=== PATIENT | male | born 1995 | race Caucasian/White ===

== ENCOUNTER 2016-08-31 14:56 | Emergency (ER) | payer MEDICAID, OTHER ==
[~2016-08-31] VITALS: Ht 172.7 cm; Wt 102.1 kg
[2016-08-31 15:21] VITALS: BP_SYST 152
--- NOTE | 2016-08-31 15:21 | NUR ---
PLACED IN ROOM 3 REPORT TO GREG JENKINS
--- NOTE | 2016-08-31 15:50 | NUR ---
ER MD Cheng at bedside for evaluation
--- NOTE | 2016-08-31 16:01 | NUR ---
Note undone in EDM - 08/31/16 at 1617 by KONRAD Patient given written and verbal discharge instructions and verbalizes understanding. ER MD Cheng discussed with patient the results and treatment provided. Patient in stable condition. ID arm band removed. Patient educated on pain management and to follow up with PMD. Pain Scale 0/10. Opportunity for questions provided and answered.
--- NOTE | 2016-08-31 16:01 | NUR ---
Pt states "I feel sick and need my bipolar pills". Take lamicatal 25mg BID, Latuda 50mg HS, Hydroxizine 25mg BID, Zoloft daily. Has been out of pills x1 week. C/O sore thoat when he swallows, no when he talks. Denies fever. C/O diarrhea past few days. LUQ pain accompanied by diarrhea.
--- NOTE | 2016-08-31 16:03 | NUR ---
[facility] Patient states "i have an appointment in September and they cant give me refill until my appointment" Per ambulatory technologist Scar Holman at [facility] patient has an appointment tomorrow morning 09/01/16 at 8 am to see the therapist and an appointment September 29 at 8:[address] Elizabeth Hays psychiatrist. Per ambulatory technologist Scar Holman patient had 5 crisis hospitalizations for SI with intent of "taking all his psych meds" and one attempt where he stepped in front of a train but got pulled back by the grandmother. In addition the prescriptions that patient is asking for are not the right doses or meds prescribed by the facility. Patient is asking for latuda 50mg dq, lamictal 25mg bid, zolovt 80mg qd, hydraxyzine 25 mg q12h prn. Per ambulatory technologist Scar Holman patient can go to [address] [phone] which is open 24 hrs daily to receive emergency psych meds and being evaluated by a therapist. ER MD Cheng aware.
[2016-08-31 16:11] VITALS: BP_SYST 124
--- NOTE | 2016-08-31 16:11 | NUR ---
Patient given written and verbal discharge instructions and verbalizes understanding. ER MD Cheng discussed with patient the results and treatment provided. Patient in stable condition. ID arm band removed. Patient educated on pain management and to follow up with PMD. Pain Scale 0/10. Opportunity for questions provided and answered.
== END 2016-08-31 16:11 | disposition home or self-care (01) ==
LOC: SED 14:56
DX: Z76.0 Encounter for issue of repeat prescription (principal); F90.9 Attention-deficit hyperactivity disorder, unspecified type; F20.9 Schizophrenia, unspecified; F31.9 Bipolar disorder, unspecified; K21.9 Gastro-esophageal reflux disease without esophagitis; F43.10 Post-traumatic stress disorder, unspecified; Z91.011 Allergy to milk products
CPT/HCPCS: 99283

== ENCOUNTER 2016-09-03 12:43 | Emergency (ER) | payer OTHER ==
[~2016-09-03] VITALS: Ht 170.2 cm; Wt 132.4 kg
[2016-09-03 13:16] VITALS: BP_SYST 137
--- NOTE | 2016-09-03 15:15 | NUR ---
Called for patient 3 times, unable to locate pt. Pt presumed to have LWBS.
== END 2016-09-03 15:15 | disposition left against medical advice (07) ==
LOC: SED 12:43
DX: R07.0 Pain in throat (principal); R11.10 Vomiting, unspecified; Z53.21 Procedure and treatment not carried out due to patient leaving prior to being seen by health care provider

== ENCOUNTER 2018-02-17 11:46 | Emergency (ER) | payer MEDICAID ==
[~2018-02-17] VITALS: Ht 172.7 cm; Wt 104.3 kg
[2018-02-17 11:52] VITALS: BP_SYST 133
--- NOTE | 2018-02-17 11:57 | NUR ---
Patient to ER bed 4 to gown for evaluation. Side rails up. Report given to Adair JENKINS.
--- NOTE | 2018-02-17 12:05 | NUR ---
Pt presents to ER c/o cough, fever, diarrhea. Pt in no acute distress, speaking full sentences, ambulatory, AOX4.
--- NOTE | 2018-02-17 12:30 | NUR ---
ER at bedside examining patient.
--- NOTE | 2018-02-17 14:04 | NUR ---
Patient given written and verbal discharge instructions and verbalizes understanding. ER MD discussed with patient the results and treatment provided. Patient in stable condition. ID arm band removed. IV catheter removed intact and dressing applied, no active bleeding. Rx of Promethazine given. Patient educated on pain management and to follow up with PMD. Pain Scale 2/10 tolerable patient Opportunity for questions provided and answered. Medication side effect fact sheet provided.
[2018-02-17 14:06] VITALS: BP_SYST 128
== END 2018-02-17 14:04 | disposition home or self-care (01) ==
LOC: SED 11:46
DX: J06.9 Acute upper respiratory infection, unspecified (principal); R03.0 Elevated blood-pressure reading, without diagnosis of hypertension; K21.9 Gastro-esophageal reflux disease without esophagitis; J45.909 Unspecified asthma, uncomplicated; F43.10 Post-traumatic stress disorder, unspecified; F31.9 Bipolar disorder, unspecified; F20.9 Schizophrenia, unspecified; F90.9 Attention-deficit hyperactivity disorder, unspecified type; Z86.19 Personal history of other infectious and parasitic diseases; Z91.011 Allergy to milk products
CPT/HCPCS: 36415; 71046-TC; 86403; 87081; 99285

== ENCOUNTER 2018-04-04 08:53 | Inpatient (IN) | payer MEDICAID ==
[~2018-04-04] VITALS: Ht 172.7 cm; Wt 113.4 kg
[2018-04-04 08:53] VITALS: BP_SYST 146
--- NOTE | 2018-04-04 08:53 | NUR ---
BROUGHT IN BY [facility], REPORT GIVEN TO PANCHITO
--- NOTE | 2018-04-04 09:00 | NUR ---
Pt brought in by BLS ambulance C/O general body aches, nausea, vomiting and headache. Pt states he took heroin 3 days ago and took meth 30 minutes ago. Pt has not slept in 6 days and would like to be evaluated. Pt has hx of substance abuse, stroke, psych hx, and asthma. Vital signs stable will continue to monitor.
--- NOTE | 2018-04-04 09:05 | NUR ---
ER Dr. Cheng at bedside examining patient.
[2018-04-04] MEDS ORDERED: NACL 0.9% 1,000 ML IV ONE (09:45)
[2018-04-04] MEDS ORDERED: LORazepam 2 MG/ML VIAL (FOR ER USE) IVP ONE (09:45)
--- NOTE | 2018-04-04 10:30 | NUR ---
Medications given to pt, tolerated well
[2018-04-04 10:33] LABS: BASOPHILS # (AUTO) 0.1 K/uL (0.0-0.2); BASOPHILS % (AUTO) 0.7 % (0.0-2.0); EOSINOPHILS # (AUTO) 0.1 K/uL (0.0-0.4); EOSINOPHILS % (AUTO) 0.7 % (0.0-4.0); HEMATOCRIT 47.5 % (36-54); HEMOGLOBIN 15.8 g/dL (14.0-18.0); LYMPHOCYTES # (AUTO) 1.9 K/uL (1.0-5.5); LYMPHOCYTES % (AUTO) 24.4 % (20.5-51.5); MEAN CORPUSCULAR HEMOGLOBIN 29 pg (27-31); MEAN CORPUSCULAR HGB CONC 33 % (32-36); MEAN CORPUSCULAR VOLUME 86 fL (79.0-98.0); MONOCYTES # (AUTO) 0.8 K/uL (0.0-1.0); MONOCYTES % (AUTO) 9.6 % (1.7-9.3); NEUTROPHILS # (AUTO) 4.9 K/uL (1.8-7.7); NEUTROPHILS % (AUTO) 64.6 % (40.0-70.0); PLATELET COUNT (AUTO) 239 K/uL (130-430); RED BLOOD CELL COUNT(AUTO) 5.49 MIL/uL (4.2-6.2); RED CELL DISTRIBUTION WIDTH 12.4 % (9.0-15.0); WHITE BLOOD COUNT (AUTO) 7.8 K/uL (4.8-10.8)
[2018-04-04 10:46] LABS: PROTHROMBIN TIME 10.3 SECS (9.5-12.5)
[2018-04-04 10:53] LABS: ANION GAP 13 (5-15); CALCIUM 9.4 mg/dL (8.4-11.0); CHLORIDE 103 mmol/L (98-107); CREATININE 0.85 mg/dL (0.55-1.30); GLUCOSE 75 mg/dL (70-99); POTASSIUM 3.7 mmol/L (3.5-5.1); SODIUM SERUM 139 mmol/L (136-145); UREA NITROGEN, BLOOD 14 mg/dL (8-21)
[2018-04-04 10:55] LABS: GFR AFRICAN AMERICAN 145 mL/min (>90)
[2018-04-04 11:03] LABS: ALANINE AMINOTRANSFERASE 94 U/L (12-78); ALBUMIN 4.1 g/dL (3.4-4.8); ASPARTATE AMINOTRANSFERASE 40 U/L (10-37); FREE T4 (FREE THYROXINE) 0.6 ng/dL (0.6-1.6)
--- NOTE | 2018-04-04 11:09 | NUR ---
DR IQABL AT BEDSIDE FOR RE-EVALUATION
[2018-04-04 11:11] LABS: ALCOHOL, BLOOD < 3 mg/dL (<10)
[2018-04-04] MEDS ORDERED: LEVE250T2 PO (11:21)
[2018-04-04] MEDS ORDERED: LURA40TA PO (11:21)
[2018-04-04] MEDS ORDERED: LORA2TAB95 PO (11:21)
--- NOTE | 2018-04-04 11:22 | NUR ---
Medication reconciliation completed with information provided by PT. Any prior medication reconciliation on file was reviewed and corrected.
--- NOTE | 2018-04-04 11:22 | NUR ---
PT REPORTS THAT HE IS DNR
--- NOTE | 2018-04-04 12:14 | NUR ---
Pt is anxious and sitting in bed. Vitals are stable will continue to monitor pt condition.
--- NOTE | 2018-04-04 12:30 | NUR ---
Patient will be admitted to care of Dr. Ragsdale. Admitted to Telemetry unit. Will go to room 102A. Belongings list completed. Summary report printed. Report will be given at bedside.
[2018-04-04 12:45] VITALS: BP_SYST 130
--- NOTE | 2018-04-04 12:45 | NUR ---
Admission Note Received patient from ER with diagnosis of Abnormal Liver Enzymes. Initial Plan of Care discussed-patient verbalized understanding. Family at bedside. Oriented to room, call light, pain management and safety.
[2018-04-04 13:12] VITALS: BP_SYST 130
--- NOTE | 2018-04-04 14:24 | NUR ---
REFUSING CATHETER Pt refusing to have straight cath, pt stated he "hates them'. Pt educated on why the doctor ordered the catheter-pt verbalized his understanding and still refused. Pt requested more apple juice to try to go on his own. Note that pt had bladder scan earlier that showed 200 ml-Dr. Ragsdale aware. Pt given urinal. Call light within reach.
--- NOTE | 2018-04-04 16:30 | NUR ---
ROUNDS Pt sitting up in bed talking on his phone, no s/s seizure activity, no c/o pain or discomfort. Pt given apple juice per request. Call light within reach.
[2018-04-04 17:07] VITALS: BP_SYST 120
[2018-04-04] MEDS: LevETIRAcetam 500 MG/5 ML UDC ORAL LIQUID PO SCH ×2 (18:00→21:00)
[2018-04-04] MEDS ORDERED: ACETAMINOPHEN 325 MG TABLET PO PRN (18:00)
[2018-04-04] MEDS ORDERED: FAMOTIDINE 20 MG TABLET PO ONE (18:00)
[2018-04-04] MEDS ORDERED: LORazepam 1 MG TABLET PO PRN (18:00)
[2018-04-04] MEDS ORDERED: LORazepam 2 MG/ML VIAL IVP PRN (18:00)
[2018-04-04] MEDS ORDERED: AZITHROMYCIN 250 MG TABLET PO ONE (18:15)
[2018-04-04] MEDS ORDERED: IPRATROPIUM/ALBUTEROL SULFATE 3 ML AMPUL.NEB (DUONEB) INH SCH (18:15)
[2018-04-04] MEDS: POTASSIUM CHLORIDE 10 MEQ in NACL 0.9% 1,000 ML IV SCH (18:57)
[2018-04-04 19:10] VITALS: BP_SYST 144
--- NOTE | 2018-04-04 19:10 | NUR ---
Opening Note Bedside sbar report received from armin RNJoan. Patient is awake/alert/oriented on his phone. No acute distress noted at this time. IV site noted to RAC20G infusing [id number] @ 100ml/hr. Patency verified with good blood return/flush. Informed patient urine sample is needed as he is refusing straight cath. He verbalizes understanding and says he'll call when he has to go. Bed to lowest position, 2 upper side rails raised bilaterally, call light within reach, bed alarm activated.
--- NOTE | 2018-04-04 19:10 | NUR ---
CLOSING NOTE Pt sitting up in bed with no s/s resp distress, no s/s seizure activity, no c/o pain or discomfort. Pt refused to take liquid Keppra as ordered by -paul JONES. Pt is still refusing to to have a straight cath, pt non-distend to low abd, will inform Dr. Ragsdale. Needs met, call light within reach.
[2018-04-04 20:00] VITALS: BP_SYST 119
--- NOTE | 2018-04-04 20:55 | NUR ---
Patient is requesting regular diet, he says he is fine to eat and that clear liquid is not appetizing. Informed him that Dr. Ragsdale rounded on him today and ordered a clear liquid diet. Informed him that when she rounds on him again tomorrow to ask for advancement in diet.
--- NOTE | 2018-04-04 21:05 | NUR ---
Rounds Patient is awake/alert/oriented with his 2 friends bedside. He would like some jello; provided. He does not need anything else at this time. Bed to lowest position, 2 upper side rails raised bilaterally, call light within reach, bed alarm activated. Will continue to monitor patient.
[2018-04-04 21:51] LABS: BILIRUBIN,URINE 1+ (NEGATIVE); BLOOD, URINE NEGATIVE (NEGATIVE); CLARITY/URINE CLEAR (CLEAR); COLOR,URINE YELLOW (YELLOW); GLUCOSE,URINE NEGATIVE (NEGATIVE); KETONES,URINE 3+ (NEGATIVE); LEUKOCYTE ESTERASE ,URINE NEGATIVE (NEGATIVE); NITRITE, URINE NEGATIVE (NEGATIVE); PROTEIN URINE TRACE (NEGATIVE)
[2018-04-04 21:59] LABS: BACTERIA,URINE FEW /HPF (None Seen); MUCUS,URINE 1+ /LPF (None Seen); RBC,URINE 0-3 /HPF (0-3); WBC,URINE 0-3 /HPF (0-3)
[2018-04-04 22:03] LABS: BARBITURATE, URINE NEGATIVE (NEG <=200); BENZODIAZEPINE, URINE POSITIVE (NEG <=150); CANNABINOID, URINE NEGATIVE (NEG <=50); COCAINE, URINE NEGATIVE (NEG <=150); METHAMPHETAMINES SCREEN,URINE POSITIVE (NEG <=500); OPIATE, URINE NEGATIVE (NEG <=100); PHENCYCLIDINE SCREEN,URINE NEGATIVE (NEG <=25); UR TRICYCLIC ANTIDEPRESSANTS NEGATIVE (NEG <=300); URINE AMPHETAMINE POSITIVE (NEG <=500); URINE METHADONE NEGATIVE (NEG <=200); URINE OXYCODONE SCREEN NEGATIVE (NEG <=100); URINE PROPOXYPHENE SCREEN NEGATIVE (NEG <=300)
--- NOTE | 2018-04-04 22:55 | NUR ---
Assisted patient to bathroom, then safely back to bed.
--- NOTE | 2018-04-04 23:10 | NUR ---
Rounds Patient is awake/alert/oriented on his phone. He would like some more apple juice; provided. He does not need anything else at this time. Bed to lowest position, 2 upper side rails raised bilaterally, call light within reach, bed alarm activated. Will continue to monitor patient.
[2018-04-05 00:22] VITALS: BP_SYST 119
--- NOTE | 2018-04-05 00:58 | NUR ---
Ativan Patient is very anxious and is requesting his dose of Ativan. Administered Ativan 2mg as ordered for anxiety. Will follow up to ensure effective management.
--- NOTE | 2018-04-05 03:15 | NUR ---
Rounds Patient is resting, eyes closed with no acute distress noted. Equal rise and fall of chest with non-labored respirations @ 16/min. IV site is clean/dry/intact with no signs of redness or infiltration noted. Bed to lowest position, 2 upper side rails raised bilaterally, call light within reach, bed alarm activated. Will continue to monitor patient.
--- NOTE | 2018-04-05 05:27 | NUR ---
Rounds Patient is awake/alert, wants some apple juice; provided. Changed ekg leads as groundwater monitoring technician advised rhythm not reading. No shortness of breath, no labored breathing. IV site is clean/dry/intact with no signs of redness or infiltration noted. Bed to lowest position, 2 upper side rails raised bilaterally, call light within reach, bed alarm activated. Will continue to monitor patient.
[2018-04-05] MEDS: POTASSIUM CHLORIDE 10 MEQ in NACL 0.9% 1,000 ML IV SCH (05:56)
--- NOTE | 2018-04-05 07:15 | NUR ---
Closing Note Bedside sbar report given to dayshift RNAiram. Patient is resting, eyes closed with acute distress noted at this time. All needs/interventions/expectations met by nightshift RN. Transfer of care successful.
[2018-04-05 07:43] LABS: ALBUMIN 3.3 g/dL (3.4-4.8); BILIRUBIN,DIRECT 0.3 mg/dL (0.0-0.3); CALCIUM 9.1 mg/dL (8.4-11.0); CREATININE 0.66 mg/dL (0.55-1.30); POTASSIUM 3.9 mmol/L (3.5-5.1); THYROID STIMULATING HORMONE 0.92 uIu/mL (0.34-4.82); TOTAL BILIRUBIN 1.2 mg/dL (0.0-1.0)
--- NOTE | 2018-04-05 07:57 | NUR ---
AM NOTES Patient is awake, alert, laying in bed. Patient is calm and cooperative, no s/s of acute distress or SOB, no pain reported. Right 20G IV site intact, patent, dressing is dry, IVF NS with KCL running at 100cc/hr. Oriented to room routine, bed in lowest position, call light within reach, encouraged to use call light when in need of assistance. Addendum: 04/05/18 at 0816 by Chel Mars RN ADDITION TO AM NOTES Seizure precautions in place, side rails padded.
[2018-04-05 07:59] VITALS: BP_SYST 127
[2018-04-05] MEDS: LevETIRAcetam 500 MG/5 ML UDC ORAL LIQUID PO SCH (08:45)
[2018-04-05] MEDS ORDERED: FAMOTIDINE 20 MG TABLET PO SCH (09:00)
--- NOTE | 2018-04-05 09:56 | NUR ---
REQUESTING TO LEAVE AMA Patient states he wants to "sign an AMA form because I need to go to my Section 8 appointment or I will lose my housing." Dr. Ender robertson and sexual assault social worker called.
--- NOTE | 2018-04-05 10:16 | NUR ---
Mud Worker Note SENIOR TELECOMMUNICATIONS SPECIALIST was asked to speak with patient due to homelessness and leaving AMA. SENIOR TELECOMMUNICATIONS SPECIALIST met with patient at bedside. Patient claims to have a Section 8 housing meeting that he must attend. Refuses to attempt or to be assisted with moving the appointment. He will be picked up by a friend. Patient admits to heroin and meth use and has used illegal substances for 13 years. He has no felonies. He is aware of homeless and substance abuse resources. He is working with [facility]. He stated he currently has no thoughts of harming himself or others. He does not think he is having withdrawal symptoms other than some agitation. Patient claims to want to stop using drugs and knows how to call to begin the process of getting admitted to a substance abuse facility. SENIOR TELECOMMUNICATIONS SPECIALIST offered encouragement and support. Patient is determined to leave AMA. Provided his nurse with the Homeless Patient Waiver form. Provided patient with homeless packet, list of substance abuse treatment facilities and out patient health and mental health clinics.
--- NOTE | 2018-04-05 10:20 | NUR ---
AMA: Patient wants to leave AMA, will not wait for MD to make rounds because he has an appointment for his housing. Patient arranged for his transportation .
--- NOTE | 2018-04-05 10:30 | NUR ---
AMA: Patient does not wish to proceed with medical care recommended by Dr. Ragsdale. Patient given information related to possible complications, up to and including , which could occur as a result of leaving hospital at this time. Patient verbalizes understanding of risks involved leaving against medical advice. Patient has signed AMA form. ID band cut, IV lines removed. All belongings sent home with patient. Addendum: 04/05/18 at 1049 by Chel Mars RN ADDITIONAL NOTES Homeless resources packet was provided by bilingual social worker. Homeless waiver signed by patient.
[2018-04-06 19:22] LABS: HEPATITIS A AB, IgM Negative (Negative); HEPATITIS B CORE AB, IgM Negative (Negative); HEPATITIS B SURFACE AG Negative (Negative)
== END 2018-04-05 10:25 | disposition left against medical advice (07) | DRG 141 ==
LOC: SED 08:53 → SMU 11:46 → STU 12:30
PROVIDERS: ADMIT Internal Medicine; ATTEND Internal Medicine
DX: J45.901 Unspecified asthma with (acute) exacerbation (principal); F20.9 Schizophrenia, unspecified; F15.93 Other stimulant use, unspecified with withdrawal; F11.23 Opioid dependence with withdrawal; B19.20 Unspecified viral hepatitis C without hepatic coma; F31.9 Bipolar disorder, unspecified; G40.909 Epilepsy, unspecified, not intractable, without status epilepticus; K21.9 Gastro-esophageal reflux disease without esophagitis; F90.9 Attention-deficit hyperactivity disorder, unspecified type; Z53.21 Procedure and treatment not carried out due to patient leaving prior to being seen by health care provider; Z91.011 Allergy to milk products; Z88.8 Allergy status to other drugs, medicaments and biological substances
CPT/HCPCS: 36415; 71045; 74018; 80048; 80053; 80074; 80076; 80307; 81000-TC; 82140-TC; 83605; 83880; 84439; 84443-TC; 84484; 85025; 85610-TC; 87040-TC; 87086; 90656; 94640; 96361; 96374; 99285; G0482; J2060; J3480; J7030; J7620; Q0144

== ENCOUNTER 2018-04-07 09:26 | Emergency (ER) | payer MEDICAID ==
[~2018-04-07] VITALS: Ht 172.7 cm; Wt 86.2 kg
[2018-04-07 09:26] VITALS: BP_SYST 118
[~2018-04-07 09:26] MED LIST: LEVE250T2 PO; LORA2TAB95 PO; LURA40TA PO
[2018-04-07] MEDS ORDERED: NACL 0.9% 1,000 ML IV ONE (10:15)
[2018-04-07] MEDS ORDERED: LORazepam 2 MG/ML VIAL (FOR ER USE) IVP ONE (10:15)
[2018-04-07 11:13] VITALS: BP_SYST 125
== END 2018-04-07 11:13 | disposition home or self-care (01) ==
LOC: SED 09:26
DX: F13.239 Sedative, hypnotic or anxiolytic dependence with withdrawal, unspecified (principal); R11.2 Nausea with vomiting, unspecified; R53.83 Other fatigue; K21.9 Gastro-esophageal reflux disease without esophagitis; J45.909 Unspecified asthma, uncomplicated; F90.9 Attention-deficit hyperactivity disorder, unspecified type; F43.10 Post-traumatic stress disorder, unspecified; F31.9 Bipolar disorder, unspecified; F20.9 Schizophrenia, unspecified; Z86.19 Personal history of other infectious and parasitic diseases; Z91.011 Allergy to milk products; Z79.899 Other long term (current) drug therapy
CPT/HCPCS: 96361; 96374; 99284; J2060; J7030

== ENCOUNTER 2018-06-30 11:57 | Inpatient (IN) | payer MEDICAID ==
[~2018-06-30] VITALS: Ht 170.2 cm; Wt 117.9 kg
[2018-06-30] MEDS ORDERED: NACL 0.9% 1,000 ML IV ONE (12:01)
[2018-06-30 12:04] VITALS: BP_SYST 160; BP_SYST 168
--- NOTE | 2018-06-30 12:09 | NUR ---
ER at bedside examining patient.
--- NOTE | 2018-06-30 12:09 | NUR ---
patient arrived via [employer] [place] [facility] from [employer]. patient began doing meth while dinning there and c/o overdose of meth. They called 911, no medication given while in trasport. Patient is AOx4 with sever anxiety asb increased high rate, tachypnia and unable to stay on task. no other complaint or injury otherwise at this time.
--- NOTE | 2018-06-30 12:15 | NUR ---
patients arms and legs began to jerk for approx 10 seconds. patient was tachpnic throughout the 10 seconds. patient did not respond to verbal or painful stimuli during this time. patient was put on a nonrebreather mask and IV access was completed.
[2018-06-30] MEDS ORDERED: DIPHENHYDRAMINE INJ 50 MG/ML VIAL ONE (12:40)
[2018-06-30] MEDS ORDERED: LORazepam 2 MG/ML VIAL (FOR ER USE) ONE (12:40)
[2018-06-30] MEDS ORDERED: HALOPERIDOL LACTATE 5 MG/ML VIAL ONE (12:41)
[2018-06-30] MEDS ORDERED: HALOPERIDOL LACTATE 5 MG/ML VIAL IVP ONE (12:45)
[2018-06-30] MEDS ORDERED: LORazepam 2 MG/ML VIAL (FOR ER USE) IVP ONE (12:45)
[2018-06-30] MEDS ORDERED: DIPHENHYDRAMINE INJ 50 MG/ML VIAL IVP ONE (12:45)
[2018-06-30 12:46] LABS: BASOPHILS # (AUTO) 0.1 K/uL (0.0-0.2); BASOPHILS % (AUTO) 0.7 % (0.0-2.0); EOSINOPHILS % (AUTO) 0.5 % (0.0-4.0); HEMATOCRIT 49.1 % (36-54); HEMOGLOBIN 16.1 g/dL (14.0-18.0); LYMPHOCYTES # (AUTO) 2.7 K/uL (1.0-5.5); MEAN CORPUSCULAR HEMOGLOBIN 28 pg (27-31); MEAN CORPUSCULAR HGB CONC 33 % (32-36); MEAN CORPUSCULAR VOLUME 86 fL (79.0-98.0); MONOCYTES # (AUTO) 0.5 K/uL (0.0-1.0); MONOCYTES % (AUTO) 4.7 % (1.7-9.3); NEUTROPHILS # (AUTO) 6.5 K/uL (1.8-7.7); NEUTROPHILS % (AUTO) 66.1 % (40.0-70.0); PLATELET COUNT (AUTO) 248 K/uL (130-430); RED BLOOD CELL COUNT(AUTO) 5.72 MIL/uL (4.2-6.2); RED CELL DISTRIBUTION WIDTH 13.1 % (9.0-15.0); WHITE BLOOD COUNT (AUTO) 9.8 K/uL (4.8-10.8)
--- NOTE | 2018-06-30 13:00 | NUR ---
patient began hyperventilating with sever anxiety. patient began jerking his arms and legs, eyes were closed for approx 35 seconds. patient was not responsive to verbal or painful stimuli. once patient stopped jerking arms and legs, patient was resting. provided medication as ordered.
[2018-06-30 13:04] LABS: ANION GAP 18 (5-15); CALCIUM 9.3 mg/dL (8.4-11.0); CHLORIDE 101 mmol/L (98-107); CREATININE 1.07 mg/dL (0.55-1.30); GLUCOSE 94 mg/dL (70-99); POTASSIUM 4.5 mmol/L (3.5-5.1); SODIUM SERUM 139 mmol/L (136-145); UREA NITROGEN, BLOOD 10 mg/dL (8-21)
[2018-06-30 13:07] LABS: GFR AFRICAN AMERICAN 110 mL/min (>90)
[2018-06-30 13:08] LABS: ALANINE AMINOTRANSFERASE 55 U/L (12-78); ALBUMIN 4.6 g/dL (3.4-4.8); AMYLASE 44 U/L (0-100); ASPARTATE AMINOTRANSFERASE 34 U/L (10-37); LIPASE 73 U/L (73-393); TOTAL BILIRUBIN 0.4 mg/dL (0.0-1.0)
[2018-06-30 13:09] LABS: ACETAMINOPHEN < 1 ug/mL (1-30); ALCOHOL, BLOOD < 3 mg/dL (<10)
[2018-06-30 13:17] LABS: INR 1.2 (0.80-1.20); PROTHROMBIN TIME 12.4 SECS (9.5-12.5)
[2018-06-30] MEDS ORDERED: NACL 0.9% 2,000 ML IV ONE (13:30)
[2018-06-30 13:57] LABS: CKMB RELATIVE INDEX 0.5 (0.0-2.9); CREATINE KINASE MB 1.7 ng/mL (0-3.6)
--- NOTE | 2018-06-30 14:00 | NUR ---
patient states he feels hot. patients temp is 99.1. placed patient in a gown.
--- NOTE | 2018-06-30 15:30 | NUR ---
Patient will be admitted to care of MD Brumfield. Admitted to Telemetry unit. Will go to room 104B. Belongings list completed. Summary report printed. Report will be given at bedside.
[2018-06-30 16:22] LABS: BILIRUBIN,URINE NEGATIVE (NEGATIVE); BLOOD, URINE NEGATIVE (NEGATIVE); CLARITY/URINE CLEAR (CLEAR); COLOR,URINE YELLOW (YELLOW); GLUCOSE,URINE NEGATIVE (NEGATIVE); KETONES,URINE 1+ (NEGATIVE); LEUKOCYTE ESTERASE ,URINE NEGATIVE (NEGATIVE); NITRITE, URINE NEGATIVE (NEGATIVE); PROTEIN URINE NEGATIVE (NEGATIVE); UROBILINOGEN,URINE 0.2 (0.2-1.0)
[2018-06-30 16:39] LABS: BARBITURATE, URINE POSITIVE (NEG <=200); BENZODIAZEPINE, URINE NEGATIVE (NEG <=150); CANNABINOID, URINE NEGATIVE (NEG <=50); COCAINE, URINE NEGATIVE (NEG <=150); METHAMPHETAMINES SCREEN,URINE POSITIVE (NEG <=500); OPIATE, URINE NEGATIVE (NEG <=100); PHENCYCLIDINE SCREEN,URINE NEGATIVE (NEG <=25); UR TRICYCLIC ANTIDEPRESSANTS NEGATIVE (NEG <=300); URINE AMPHETAMINE POSITIVE (NEG <=500); URINE METHADONE NEGATIVE (NEG <=200); URINE OXYCODONE SCREEN NEGATIVE (NEG <=100); URINE PROPOXYPHENE SCREEN NEGATIVE (NEG <=300)
--- NOTE | 2018-06-30 16:43 | NUR ---
patient being transfered to the floor.
--- NOTE | 2018-06-30 17:00 | NUR ---
ADMISSION NOTE Received patient from ER via gurney. Patient admitted with diagnosis of methampenamine use. Patient is awake, alert, oriented X 3. Patient oriented to hospital room, call light, toileting, pain management and safety-teach back done. Patient informed that Viri will be his nurse and that their room number is 105b. Personal belongings checked and Belongings List documented. Call light within reach.
[2018-06-30 17:28] VITALS: BP_SYST 148
[2018-06-30] MEDS ORDERED: SER100 PO (17:38)
[2018-06-30] MEDS ORDERED: PHEN100C4 PO (17:38)
[2018-06-30] MEDS ORDERED: ARIP5TAB10 PO (17:38)
[2018-06-30] MEDS ORDERED: TRAZ-126 PO (17:38)
[2018-06-30] MEDS ORDERED: DIVA500T4 PO (17:38)
[2018-06-30 17:43] VITALS: BP_SYST 143
[2018-06-30] MEDS ORDERED: DEXTROSE 50% JECT 50 ML DISP.SYRIN IVP PRN (18:00)
[2018-06-30] MEDS ORDERED: INSULIN REGULAR, HUMAN 100 UNITS/ML, 10 ML VIAL (novoLIN R) SUBCUT PRN (18:00)
--- NOTE | 2018-06-30 18:00 | NUR ---
offered urinal bottle at the bedside.
--- NOTE | 2018-06-30 18:00 | NUR ---
patient complained of chest tightening and pain grade of 6. on cardiac catheterization technician v tachycardia rate 227. assesses the patient. anxious and very worried.
--- NOTE | 2018-06-30 18:18 | NUR ---
Paged Dr. Brumfield s/w Tere.
[2018-06-30] MEDS ORDERED: KETOROLAC TROMETHAMINE 15 MG VIAL IVP PRN (18:30)
--- NOTE | 2018-06-30 18:31 | NUR ---
Paged Dr. Iyer s/w Cornelio.
[2018-06-30] MEDS ORDERED: KETOROLAC TROMETHAMINE 30 MG VIAL ONE (18:46)
--- NOTE | 2018-06-30 19:15 | NUR ---
patient feels better with toradol 15 mg iv given. made comfortable.
--- NOTE | 2018-06-30 19:25 | NUR ---
CHANGE OF SHIFT; pt. awake, alert and oriented, was just given Toradol IV, verbalizing said he is feeling ok, no chest discomfort noted, IV lock on left antecubital. moves all extremities well. noted he is always checking his cell phone. safety measure observed. call light within reach.
--- NOTE | 2018-06-30 19:34 | NUR ---
endorsed to incoming nurse Rom JENKINS
[2018-06-30 19:45] VITALS: BP_SYST 152
--- NOTE | 2018-06-30 19:45 | NUR ---
NOTES: pt. called and verbally saying he does not feel good, he is getting dizzy, checked VS BP 152/83 HR 109 O2 sat 97% on room air. in no acute distress. hvac maintenance technician came for blood draw and he was fine, wants his medications and told him that it is too early, will have to wait for at least 30 minutes. pt. on seizure precautions, padded side rails. call light within reach.
[2018-06-30] MEDS: ARIPiprazole 5 MG TAB PO SCH (20:40)
[2018-06-30] MEDS: DIVALPROEX SODIUM 500 MG TAB.SR.24H (DEPAKOTE ER) PO SCH (20:41)
[2018-06-30] MEDS: PHENYTOIN 100 MG CAPSULE PO SCH (20:41)
[2018-06-30] MEDS: LORazepam 1 MG TABLET PO PRN (20:41)
--- NOTE | 2018-06-30 20:45 | NUR ---
NOTES: due medications and Ativan 2 mg po given, did not waste. pt. reassured, allow pt. to vent his feelings. ROCÍO Barrett talking to him. instructed pt. to call for help with the use of call light and verbalized understanding. Addendum: 06/30/18 at 2249 by Selin Howard RN @ 2100 checked BS 95, pt. claims he gets hypoglycemic, with cookies, pound cake, soda and some other snack at bedside.
[2018-06-30] MEDS ORDERED: levETIRAcetam 500 MG TABLET PO SCH (21:00)
[2018-06-30] MEDS ORDERED: NON-FORMULARY MEDICATION (Lurasidone Hcl (Latuda) 1 TAB) PO SCH (21:00)
[2018-06-30] MEDS ORDERED: traZODone HCL 50 MG TABLET (DESYREL) PO SCH (21:00)
--- NOTE | 2018-06-30 22:35 | NUR ---
NOTES: pt. called c/o being hot and cant breathe, on high fowlers position, will call security to adjust room temp, provided ice pack to cool off. pt. gets anxious, already given Ativan po as ordered. O2 sat 97 % on room air. cardiac pattern on sinus tach rate 135 on the monitor. condition observed. call light within reach.
--- NOTE | 2018-06-30 23:27 | NUR ---
NOTES: Dr. Brumfield here, informed the 2nd Troponin level 0.023.
--- NOTE | 2018-07-01 | NUR ---
NOTES: pt. got out bed by himself, said he called but lights went on, reset and try to use call light if its working. pt. getting tired in bed, sat up in chair for few minutes and brush his teeth, ambulated to restroom with assist, noted wobbly.
--- NOTE | 2018-07-01 00:15 | NUR ---
NOTES: back to bed and turned off light but not even a minute, called again and saying he is hallucinating, kept head light on, 3 side rails up and keep padded. pt. needs attended, drinking a lot of water.
--- NOTE | 2018-07-01 00:24 | NUR ---
NOTES: pt. called and wants to go restroom again to try to have BM but unsuccessful, pt. wobbly and informed not to walk by himself, on fall precautions, back to bed and alarm turn on.
--- NOTE | 2018-07-01 01:17 | NUR ---
NOTES: pt. still awake, wants coffee but HR up 123-130, instead given apple juice and jello.
[2018-07-01 01:20] VITALS: BP_SYST 144
[2018-07-01 01:22] VITALS: BP_SYST 144
--- NOTE | 2018-07-01 02:07 | NUR ---
NOTES: pt. ambulated to restroom ,stand by assist, no dizziness noted, able to have BM. pt. loves to draw, note pad and markers on his table. needs attended.
--- NOTE | 2018-07-01 02:43 | NUR ---
NOTES: pt. called, wants his IV site flushed and done. remains awake, continue to monitor.
--- NOTE | 2018-07-01 03:44 | NUR ---
NOTES: pt. called, wants to go restroom and voided. pt. gown changed since it got wet, linen changed and pad. back to bed. cardiac pattern on sinus tach. continue to monitor.
--- NOTE | 2018-07-01 06:00 | NUR ---
NOTES; pt. went to the restroom, able to sleep for a short period of time. no distress.
--- NOTE | 2018-07-01 06:13 | NUR ---
Consultation Paged Reason for Consultation: Depression Was consult called: Y Person who was notified: Essie Consulting Physician: Dr. Petersen Reliability Specialist Ordering Physician: Dr. Brumfield
[2018-07-01 06:49] LABS: BASOPHILS % (AUTO) 0.4 % (0.0-2.0); EOSINOPHILS # (AUTO) 0.1 K/uL (0.0-0.4); EOSINOPHILS % (AUTO) 1.3 % (0.0-4.0); HEMATOCRIT 45.7 % (36-54); HEMOGLOBIN 15.2 g/dL (14.0-18.0); LYMPHOCYTES # (AUTO) 1.5 K/uL (1.0-5.5); LYMPHOCYTES % (AUTO) 30.2 % (20.5-51.5); MEAN CORPUSCULAR HEMOGLOBIN 29 pg (27-31); MEAN CORPUSCULAR HGB CONC 33 % (32-36); MEAN CORPUSCULAR VOLUME 86 fL (79.0-98.0); MONOCYTES # (AUTO) 0.4 K/uL (0.0-1.0); MONOCYTES % (AUTO) 7.8 % (1.7-9.3); NEUTROPHILS % (AUTO) 60.3 % (40.0-70.0); PLATELET COUNT (AUTO) 191 K/uL (130-430); RED BLOOD CELL COUNT(AUTO) 5.33 MIL/uL (4.2-6.2)
--- NOTE | 2018-07-01 06:50 | NUR ---
CLOSING NOTES; blood sugar checked 95. up in chair, tired laying in bed. reminded to go back to bed, still wobbly when walking. for further observation. no seizure activity
[2018-07-01 07:05] LABS: CALCIUM 8.2 mg/dL (8.4-11.0); CREATININE 0.67 mg/dL (0.55-1.30); PHENYTOIN (DILANTIN) 22.2 ug/mL (10.0-20.0); POTASSIUM 3.4 mmol/L (3.5-5.1)
--- NOTE | 2018-07-01 07:10 | NUR ---
Nutrition Update Ricky Scale 18 noted. Pt admitted for methamphetamine abuse [facility] BMI: 40.7 kg/m2 RD to follow per nutrition care standards.
[2018-07-01 08:00] VITALS: BP_SYST 151
--- NOTE | 2018-07-01 08:00 | NUR ---
AM NOTES IN BED, AWAKE. EATING BREAKFAST. DENIES ANY CHEST PAIN OR SHORTNESS OF BREATH. COMPLAIN OF SOME DISCOMFORT ON HIS RIGHT SIDE OF HIS ABDOMEN. SAFETY PRECAUTION OBSERVED. CALL LIGHT WITHIN REACH. ENC. TO CALL FOR HELP NEEDED. WILL CONTINUE TO MONITOR.
[2018-07-01] MEDS: PHENYTOIN 100 MG CAPSULE PO SCH (08:43)
[2018-07-01] MEDS: ARIPiprazole 5 MG TAB PO SCH (08:43)
[2018-07-01] MEDS: DIVALPROEX SODIUM 500 MG TAB.SR.24H (DEPAKOTE ER) PO SCH (08:43)
[2018-07-01] MEDS: LORazepam 1 MG TABLET PO PRN (08:56)
[2018-07-01] MEDS ORDERED: QUEtiapine FUMARATE 100 MG TABLET PO SCH ×2 (09:00→21:00)
[2018-07-01] MEDS ORDERED: COMMUNICATION ORDER XX ONE (09:00)
--- NOTE | 2018-07-01 09:00 | NUR ---
Notes Per patient he takes Keppra 500mg 2x a day at home and he wants his seroquel to be taken at night. Pharmacy informed.
[2018-07-01] MEDS ORDERED: levETIRAcetam 500 MG TABLET PO ONE (09:30)
--- NOTE | 2018-07-01 10:00 | NUR ---
notes- pt stated that he see thing sometimes on his peripheral vision. Patient does want his ativan. ativan given. denies any suicidal thoughts.
--- NOTE | 2018-07-01 10:30 | NUR ---
NOTES- In bed, on his iphone. Pt stated he feels feels better. no distress noted.
[2018-07-01 12:58] VITALS: BP_SYST 152
--- NOTE | 2018-07-01 13:00 | NUR ---
NOTES EATING LUNCH, WANTS TO GO HOME NOW. INSTRUCTED PATIENT TO WAIT FOR THE DOCTOR. PATIENTS VERBALIZE UNDERSTANDING.
[2018-07-01] MEDS ORDERED: POTASSIUM CHLORIDE 20 MEQ TAB.PRT.SR PO ONE (13:30)
--- NOTE | 2018-07-01 13:30 | NUR ---
MD ROUNDS-SEEN BY DR. RAMIREZ AT BEDSIDE
[2018-07-01 14:15] VITALS: BP_SYST 140
--- NOTE | 2018-07-01 14:30 | NUR ---
notes- Discharge patient home to nursing home. patient refused to be wheeled out and wants to call his own ride. awake. ambulate with steady gait. Denies any pain or discomfort. no distress noted. discharge instruction given to patient and follow up care to Rehab. verbalize understanding.
[2018-07-01] MEDS ORDERED: levETIRAcetam 500 MG TABLET PO SCH (21:00)
== END 2018-07-01 14:30 | disposition home or self-care (01) | DRG 776 ==
LOC: SED 11:57 → STU 15:17
PROVIDERS: ADMIT Internal Medicine; ATTEND Internal Medicine
DX: F19.10 Other psychoactive substance abuse, uncomplicated (principal); F20.9 Schizophrenia, unspecified; E87.6 Hypokalemia; F31.9 Bipolar disorder, unspecified; B19.20 Unspecified viral hepatitis C without hepatic coma; F43.10 Post-traumatic stress disorder, unspecified; K21.9 Gastro-esophageal reflux disease without esophagitis; F90.9 Attention-deficit hyperactivity disorder, unspecified type; G40.909 Epilepsy, unspecified, not intractable, without status epilepticus; F15.10 Other stimulant abuse, uncomplicated; F31.60 Bipolar disorder, current episode mixed, unspecified; Z59.0 Homelessness; E66.9 Obesity, unspecified; R00.0 Tachycardia, unspecified; F17.210 Nicotine dependence, cigarettes, uncomplicated; Z88.0 Allergy status to penicillin; Z68.41 Body mass index [BMI] 40.0-44.9, adult
CPT/HCPCS: 36415; 70450-TC; 71045; 80048; 80053; 80164-TC; 80185-TC; 80307; 81000-TC; 81003; 82150-TC; 82550-TC; 82553-TC; 82962; 83605; 83690-TC; 84484; 85025; 85610-TC; 85730-TC; 87040-TC; 87081; 93005; 93306; 96361; 96374; 96375; 99285; G0378; G0480; G0481; G0482; J1200; J1630; J1815; J1885; J2060

== ENCOUNTER 2018-07-28 19:27 | Emergency (ER) | payer MEDICAID ==
[~2018-07-28] VITALS: Ht 165.1 cm; Wt 95.3 kg
[~2018-07-28 19:27] MED LIST changes: +ARIP5TAB10 PO; +DIVA500T4 PO; +PHEN100C4 PO; +SER100 PO; +TRAZ-219 PO
--- NOTE | 2018-07-28 19:30 | NUR ---
Patient to ER bed 7 for evaluation. Side rails up.
--- NOTE | 2018-07-28 19:35 | NUR ---
Seizure precautions in place, no seizure activity noted. Will continue to observe and assess.
[2018-07-28 19:39] VITALS: BP_SYST 125
--- NOTE | 2018-07-28 19:50 | NUR ---
.Patient to ER via EMS for evaluation of flu like symptoms, patient reports HX of seizures. Patient is awake, alert and oriented in no acute distress, vital signs stable, respirations even and unlabored, skin warm and dry to touch. No seizure activity noted, no incontinence noted. Awaiting evaluation by ER MD/PA, will continue to observe and assess
--- NOTE | 2018-07-28 20:00 | NUR ---
AZRA Romero at bedside examining patient.
[2018-07-28] MEDS ORDERED: NACL 0.9% 1,000 ML IV ONE (20:12)
[2018-07-28] MEDS ORDERED: ONDANSETRON HCL 4 MG/2 ML VIAL IVP ONE (20:15)
[2018-07-28] MEDS ORDERED: LORazepam 2 MG/ML VIAL (FOR ER USE) IVP ONE (20:15)
[2018-07-28] MEDS ORDERED: MORPHINE 4 MG/ML INJ. SYRINGE IVP ONE (20:15)
[2018-07-28 20:34] LABS: HEMATOCRIT 47.5 % (36-54); MEAN CORPUSCULAR HEMOGLOBIN 29 pg (27-31); MEAN CORPUSCULAR HGB CONC 34 % (32-36); MEAN CORPUSCULAR VOLUME 87 fL (79.0-98.0); PLATELET COUNT (AUTO) 234 K/uL (130-430); RED BLOOD CELL COUNT(AUTO) 5.47 MIL/uL (4.2-6.2); RED CELL DISTRIBUTION WIDTH 13.7 % (9.0-15.0)
[2018-07-28 20:35] LABS: BASOPHILS % (AUTO) 0.4 % (0.0-2.0); EOSINOPHILS # (AUTO) 0.2 K/uL (0.0-0.4); EOSINOPHILS % (AUTO) 2.2 % (0.0-4.0); LYMPHOCYTES # (AUTO) 1.7 K/uL (1.0-5.5); LYMPHOCYTES % (AUTO) 20.9 % (20.5-51.5); MONOCYTES # (AUTO) 0.7 K/uL (0.0-1.0); MONOCYTES % (AUTO) 8.8 % (1.7-9.3); NEUTROPHILS # (AUTO) 5.4 K/uL (1.8-7.7); NEUTROPHILS % (AUTO) 67.7 % (40.0-70.0)
[2018-07-28 20:43] LABS: ANION GAP 7 (5-15); CALCIUM 8.8 mg/dL (8.4-11.0); CHLORIDE 104 mmol/L (98-107); CREATININE 0.85 mg/dL (0.55-1.30); GLUCOSE 80 mg/dL (70-99); POTASSIUM 3.9 mmol/L (3.5-5.1); SODIUM SERUM 139 mmol/L (136-145); UREA NITROGEN, BLOOD 12 mg/dL (8-21)
[2018-07-28 20:49] LABS: ALANINE AMINOTRANSFERASE 267 U/L (12-78); ASPARTATE AMINOTRANSFERASE 89 U/L (10-37); TOTAL BILIRUBIN 0.4 mg/dL (0.0-1.0)
[2018-07-28 20:55] LABS: GFR AFRICAN AMERICAN 144 mL/min (>90)
--- NOTE | 2018-07-28 21:00 | NUR ---
Patient resting quietly in no acute distress, vital signs stable, respirations even and unlabored, skin warm and dry to touch. Seizure precautions remain in place, no seizure activity noted. Lab specimens obtained and awaiting results and dispo. Will continue to observe and assess.
[2018-07-28 21:06] LABS: PHENYTOIN (DILANTIN) < 0.5 ug/mL (10.0-20.0); VALPROIC ACID < 3 ug/mL (50-100)
[2018-07-28 21:33] LABS: BILIRUBIN,URINE 2+ (NEGATIVE); BLOOD, URINE NEGATIVE (NEGATIVE); CLARITY/URINE CLEAR (CLEAR); COLOR,URINE AMBER (YELLOW); GLUCOSE,URINE NEGATIVE (NEGATIVE); KETONES,URINE TRACE (NEGATIVE); LEUKOCYTE ESTERASE ,URINE NEGATIVE (NEGATIVE); NITRITE, URINE NEGATIVE (NEGATIVE); PROTEIN URINE TRACE (NEGATIVE)
[2018-07-28] MEDS ORDERED: PHENYTOIN SODIUM INJ 1,000 MG in NS 100 ML IV ONE (21:45)
[2018-07-28 21:47] LABS: BACTERIA,URINE FEW /HPF (None Seen); MUCUS,URINE 3+ /LPF (None Seen); RBC,URINE NONE SEEN /HPF (0-3); WBC,URINE 0-3 /HPF (0-3)
--- NOTE | 2018-07-28 22:00 | NUR ---
Patient resting quietly in no acute distress, vital signs stable, respirations even and unlabored, skin warm and dry to touch. Seizure precautions remain in place. No seizure activity noted.
[2018-07-28] MEDS ORDERED: PHENYTOIN SODIUM 250 MG/5 ML INJ. VIAL IV ONE (22:04)
--- NOTE | 2018-07-28 23:00 | NUR ---
Patient resting quietly in no acute distress, vital signs stable, respirations even and unlabored, skin warm and dry to touch, IV fluids infusing without difficulty, no redness or swelling noted at site. Seizure precautions remain in place, no seizure activity noted. No incontinence or oral trauma noted. Will continue to observe and assess.
--- NOTE | 2018-07-29 | NUR ---
Patient resting quietly in no acute distress, vital signs stable, respirations even and unlabored, skin warm and dry to touch. Patient assisted to bedside commode, unable to have BM at this time. Patient assisted back to bed without incident. No seizure activity noted, seizure precautions remain in place, patient loud and reported to having difficulty with staff with the exception of this RN. Patient asssted with getting cleaned up, and fresh linen on bed. Awaiting dispo.
--- NOTE | 2018-07-29 00:15 | NUR ---
Dr Burk at bedside speaking with patient regarding results and plan of care, questions answered by Dr Burk. Assessment remains unchanged, patient has remained awake, alert and oriented without seizures during time here in ER.
[2018-07-29] MEDS ORDERED: levETIRAcetam 500 MG TABLET PO ONE (00:30)
--- NOTE | 2018-07-29 00:30 | NUR ---
Patient provided with meal to eat, assessment remains unchanged. No seizure activity noted, seizure precautions remain in place.
--- NOTE | 2018-07-29 00:45 | NUR ---
Patient tolerating diet, no s/s of any distress noted at this time. Will continue to observe and assess.
--- NOTE | 2018-07-29 01:00 | NUR ---
Patient offered homeless referral packet, but patient declined. Patient with weather appropriate clothing. Offered to call someone to come and tile picker patient, but patient again declined.
[2018-07-29 01:40] VITALS: BP_SYST 110
--- NOTE | 2018-07-29 01:40 | NUR ---
Patient given written and verbal discharge instructions and verbalizes understanding. ER MD discussed with patient the results and treatment provided. Patient in stable condition. ID arm band removed. IV catheter removed intact and dressing applied, no active bleeding. Rx of Dilantin, Tegretol, Glipizide, Narcan, Ativan, Keppra given. Patient educated on pain management and to follow up with PMD. Pain Scale 0. Opportunity for questions provided and answered. Medication side effect fact sheet provided. Patient left ER in no acute distress, vital signs stable, respirations even and unlabored, skin warm and dry to touch. Patient able to ambulate without difficulty with slow, steady gait. No adverse reaction noted to medication.
== END 2018-07-29 01:40 | disposition home or self-care (01) ==
LOC: SED 19:27
DX: R56.9 Unspecified convulsions (principal); F11.90 Opioid use, unspecified, uncomplicated; F15.90 Other stimulant use, unspecified, uncomplicated; J45.909 Unspecified asthma, uncomplicated; Z86.79 Personal history of other diseases of the circulatory system; Z88.8 Allergy status to other drugs, medicaments and biological substances; Z79.899 Other long term (current) drug therapy
CPT/HCPCS: 36415; 80053; 80164; 80185; 81000; 85025; 86710; 96365; 96375; 99283; J1165; J2060; J2270; J2405; J7030

== ENCOUNTER 2018-07-31 19:40 | Emergency (ER) | payer MEDICAID ==
[~2018-07-31] VITALS: Ht 162.6 cm; Wt 65.8 kg
[2018-07-31 19:43] VITALS: BP_SYST 126
[2018-07-31] MEDS ORDERED: NACL 0.9% 1,000 ML IV ONE (20:04)
[2018-07-31] MEDS ORDERED: NALOXONE HCL 2 MG/2 ML SYR IVP ONE (20:15)
[2018-07-31 20:32] LABS: RED BLOOD CELL COUNT(AUTO) 5.33 MIL/uL (4.2-6.2); WHITE BLOOD COUNT (AUTO) 11.4 K/uL (4.8-10.8)
[2018-07-31 20:33] LABS: BASOPHILS % (AUTO) 0.4 % (0.0-2.0); EOSINOPHILS % (AUTO) 0.3 % (0.0-4.0); HEMOGLOBIN 15.6 g/dL (14.0-18.0); LYMPHOCYTES # (AUTO) 2.1 K/uL (1.0-5.5); LYMPHOCYTES % (AUTO) 18.1 % (20.5-51.5); MEAN CORPUSCULAR HEMOGLOBIN 29 pg (27-31); MEAN CORPUSCULAR HGB CONC 34 % (32-36); MEAN CORPUSCULAR VOLUME 87 fL (79.0-98.0); MONOCYTES % (AUTO) 8.3 % (1.7-9.3); NEUTROPHILS # (AUTO) 8.3 K/uL (1.8-7.7); NEUTROPHILS % (AUTO) 72.9 % (40.0-70.0); PLATELET COUNT (AUTO) 254 K/uL (130-430); RED CELL DISTRIBUTION WIDTH 13.6 % (9.0-15.0)
[2018-07-31 21:01] LABS: ANION GAP 24 (5-15); CALCIUM 9.4 mg/dL (8.4-11.0); CHLORIDE 99 mmol/L (98-107); GLUCOSE 68 mg/dL (70-99); INR 1.1 (0.80-1.20); POTASSIUM 3.8 mmol/L (3.5-5.1); SODIUM SERUM 138 mmol/L (136-145); UREA NITROGEN, BLOOD 16 mg/dL (8-21)
[2018-07-31 21:07] LABS: ALANINE AMINOTRANSFERASE 176 U/L (12-78); ALBUMIN 4.7 g/dL (3.4-4.8); ASPARTATE AMINOTRANSFERASE 48 U/L (10-37); TOTAL BILIRUBIN 0.6 mg/dL (0.0-1.0)
[2018-07-31 21:10] LABS: ACETAMINOPHEN < 1 ug/mL (1-30); ALCOHOL, BLOOD < 3 mg/dL (<10); GFR AFRICAN AMERICAN 107 mL/min (>90)
[2018-07-31 21:34] LABS: BILIRUBIN,URINE 2+ (NEGATIVE); BLOOD, URINE NEGATIVE (NEGATIVE); CLARITY/URINE HAZY (CLEAR); COLOR,URINE YELLOW (YELLOW); GLUCOSE,URINE NEGATIVE (NEGATIVE); KETONES,URINE 3+ (NEGATIVE); LEUKOCYTE ESTERASE ,URINE NEGATIVE (NEGATIVE); NITRITE, URINE NEGATIVE (NEGATIVE); PROTEIN URINE 2+ (NEGATIVE)
[2018-07-31 21:39] LABS: PHENYTOIN (DILANTIN) 2.1 ug/mL (10.0-20.0)
[2018-07-31 21:42] LABS: VALPROIC ACID < 3 ug/mL (50-100)
[2018-07-31 21:48] LABS: BACTERIA,URINE FEW /HPF (None Seen); RBC,URINE 0-3 /HPF (0-3); WBC,URINE 0-3 /HPF (0-3)
[2018-07-31 21:49] LABS: FINE GRANULAR CASTS,URINE 0-10 /LPF (None Seen)
[2018-07-31 21:50] LABS: MUCUS,URINE 1+ /LPF (None Seen)
[2018-07-31 21:52] LABS: BARBITURATE, URINE POSITIVE (NEG <=200); BENZODIAZEPINE, URINE NEGATIVE (NEG <=150); CANNABINOID, URINE NEGATIVE (NEG <=50); COCAINE, URINE NEGATIVE (NEG <=150); METHAMPHETAMINES SCREEN,URINE POSITIVE (NEG <=500); OPIATE, URINE POSITIVE (NEG <=100); PHENCYCLIDINE SCREEN,URINE NEGATIVE (NEG <=25); URINE AMPHETAMINE POSITIVE (NEG <=500); URINE METHADONE NEGATIVE (NEG <=200); URINE OXYCODONE SCREEN NEGATIVE (NEG <=100)
[2018-07-31 21:53] LABS: UR TRICYCLIC ANTIDEPRESSANTS NEGATIVE (NEG <=300); URINE PROPOXYPHENE SCREEN NEGATIVE (NEG <=300)
[2018-07-31] MEDS ORDERED: DIVALPROEX SODIUM 250 MG TABLET(DEPAKOTE) PO ONE (22:45)
[2018-07-31] MEDS ORDERED: levETIRAcetam 500 MG TABLET PO ONE (22:45)
[2018-07-31] MEDS ORDERED: PHENYTOIN 100 MG CAPSULE PO ONE (22:45)
[2018-08-01] MEDS ORDERED: IBUPROFEN 800 MG TABLET PO ONE (01:45)
[2018-08-01 06:28] VITALS: BP_SYST 122
== END 2018-08-01 06:28 | disposition home or self-care (01) ==
LOC: SED 19:40
DX: T40.4X1A Poisoning by other synthetic narcotics, accidental (unintentional), initial encounter (principal); F15.10 Other stimulant abuse, uncomplicated; J45.909 Unspecified asthma, uncomplicated; F20.9 Schizophrenia, unspecified; F31.9 Bipolar disorder, unspecified; I25.2 Old myocardial infarction; Z79.899 Other long term (current) drug therapy; Z88.8 Allergy status to other drugs, medicaments and biological substances; Y92.89 Other specified places as the place of occurrence of the external cause
CPT/HCPCS: 36415; 71045; 80053; 80164; 80185; 80307; 81000; 85025; 85610; 85730; 93005; 96374; 99284; G0480; G0481; G0482; J2310; J7030

== ENCOUNTER 2018-11-30 16:22 | Emergency (ER) | payer MEDICAID ==
[~2018-11-30] VITALS: Ht 172.7 cm; Wt 113.4 kg
[~2018-11-30 16:22] MED LIST changes: -LURA40TA PO; -SER100 PO
[2018-11-30 16:25] VITALS: BP_SYST 144
--- NOTE | 2018-11-30 17:30 | NUR ---
Called to bring patient back to bed 4, but no answer. Patient was not in waiting room, not outside of ER, not inside of ER visiting family who is also a patient. Unable to locate patient at this time.
--- NOTE | 2018-11-30 17:40 | NUR ---
Called patient x 2 , no answer
[2018-11-30] MEDS ORDERED: NACL 0.9% 1,000 ML IV ONE (17:43)
[2018-11-30] MEDS ORDERED: NACL 0.9% 2,000 ML IV ONE (17:45)
--- NOTE | 2018-11-30 18:00 | NUR ---
Called patient x 3 , Pt LWBS.
== END 2018-11-30 18:00 | disposition left against medical advice (07) ==
LOC: SED 16:22
DX: R53.1 Weakness (principal); Z53.21 Procedure and treatment not carried out due to patient leaving prior to being seen by health care provider
CPT/HCPCS: 93005

== ENCOUNTER 2019-03-01 21:34 | Emergency (ER) | payer MEDICAID ==
[~2019-03-01] VITALS: Ht 180.3 cm; Wt 136.1 kg
[2019-03-01 21:45] VITALS: BP_SYST 154
[2019-03-01] MEDS ORDERED: IPRATROPIUM BROM 0.5 MG/2.5 ML VIAL.NEB (ATROVENT) INH ONE ×2 (21:45→21:56)
[2019-03-01] MEDS ORDERED: ALBUTEROL SULFATE 0.083% 2.5 MG/3 ML VIAL.NEB INH ONE ×2 (21:45→21:55)
[2019-03-01] MEDS ORDERED: methylPREDNISolone SOD SUCC/PF 62.5 MG/ML VIAL IVP ONE (21:45)
[2019-03-01 22:41] LABS: BASOPHILS % (AUTO) 0.3 % (0.0-2.0); EOSINOPHILS % (AUTO) 0.1 % (0.0-4.0); HEMATOCRIT 40.7 % (36-54); HEMOGLOBIN 13.7 g/dL (14.0-18.0); LYMPHOCYTES % (AUTO) 20.8 % (20.5-51.5); MEAN CORPUSCULAR HEMOGLOBIN 29 pg (27-31); MEAN CORPUSCULAR HGB CONC 34 % (32-36); MEAN CORPUSCULAR VOLUME 87 fL (79.0-98.0); MONOCYTES # (AUTO) 1.3 K/uL (0.0-1.0); MONOCYTES % (AUTO) 8.9 % (1.7-9.3); NEUTROPHILS # (AUTO) 10.1 K/uL (1.8-7.7); NEUTROPHILS % (AUTO) 69.9 % (40.0-70.0); PLATELET COUNT (AUTO) 180 K/uL (130-430); RED BLOOD CELL COUNT(AUTO) 4.68 MIL/uL (4.2-6.2); RED CELL DISTRIBUTION WIDTH 13.7 % (9.0-15.0); WHITE BLOOD COUNT (AUTO) 14.5 K/uL (4.8-10.8)
[2019-03-01 22:58] LABS: PROTHROMBIN TIME 9.9 SECS (9.5-12.5)
[2019-03-01 23:15] LABS: ALBUMIN 3.9 g/dL (3.4-4.8); CALCIUM 8.5 mg/dL (8.4-11.0); CREATININE 0.98 mg/dL (0.55-1.30); POTASSIUM 3.4 mmol/L (3.5-5.1); TOTAL BILIRUBIN 0.3 mg/dL (0.0-1.0)
[2019-03-01] MEDS ORDERED: CITA40TA22 PO (23:24)
[2019-03-01] MEDS ORDERED: ASPIRIN 325 MG TABLET PO ONE (23:45)
[2019-03-02 02:41] VITALS: BP_SYST 112
== END 2019-03-02 02:41 | disposition short-term general hospital (02) ==
LOC: SED 21:34
DX: R06.00 Dyspnea, unspecified (principal); R06.02 Shortness of breath; R79.89 Other specified abnormal findings of blood chemistry; J45.909 Unspecified asthma, uncomplicated; K21.9 Gastro-esophageal reflux disease without esophagitis; I25.2 Old myocardial infarction; F90.9 Attention-deficit hyperactivity disorder, unspecified type; F31.9 Bipolar disorder, unspecified; Z91.011 Allergy to milk products; Z88.8 Allergy status to other drugs, medicaments and biological substances
CPT/HCPCS: 36415; 71045; 80053; 83880; 84484; 85025; 85379; 85610; 85730; 93005; 94640; 96374; 99285; J2930; J7613

== ENCOUNTER 2019-12-13 13:21 | Emergency (ER) | payer MEDICAID, SELFPAY ==
[~2019-12-13] VITALS: Ht 167.6 cm; Wt 145.1 kg
[~2019-12-13 13:21] MED LIST changes: -ARIP5TAB10 PO; +CITA40TA22 PO; -DIVA500T4 PO; -LEVE250T2 PO; -PHEN100C4 PO
[2019-12-13 13:31] VITALS: BP_SYST 146
[2019-12-13] MEDS ORDERED: DEXAMETHASONE SOD PHOSPHATE 10 MG/ML VIAL PO ONE (15:15)
[2019-12-13 15:30] VITALS: BP_SYST 146
== END 2019-12-13 15:30 | disposition home or self-care (01) ==
LOC: SED 13:21
DX: J20.9 Acute bronchitis, unspecified (principal); R06.02 Shortness of breath
CPT/HCPCS: 71046; 99283; J1100

== ENCOUNTER 2020-06-12 18:32 | Emergency (ER) | payer BC, MEDICAID ==
[~2020-06-12] VITALS: Ht 172.7 cm; Wt 226.8 kg
[~2020-06-12 18:32] MED LIST changes: -TRAZ-219 PO; +TRAZ-251 PO
[2020-06-12 18:40] VITALS: BP_SYST 142
[2020-06-12 19:00] VITALS: BP_SYST 142
== END 2020-06-12 19:00 | disposition home or self-care (01) ==
LOC: SED 18:32
DX: Z02.89 Encounter for other administrative examinations (principal)
CPT/HCPCS: 99281